=== PATIENT | female | born 1990 | race Two or more races ===

== ENCOUNTER 2024-11-16 10:20 | Emergency (ER) | payer BC, OTHER ==
[~2024-11-16] VITALS: Ht 160 cm; Wt 63.0 kg
--- NOTE | 2024-11-16 10:36 | ED.PDOC ---
History of Present Illness HPI Comments 22 wks preg test with a chief complaint of URI symptoms x 2 days. Complains of nasal congestion sore throat nonproductive cough. Taking: Tylenol. Denies fevers chills night sweats unintentional weight loss Denies persistent chest pain, shortness of breath, leg swelling Denies history of asthma nor any breathing conditions Denies history of pneumonia Denies recent international travel Chief Complaint: Flu like Time Seen by MD: 10:27 Reviewed Notes: Nurses Notes, Medications, Allergies Information Source: Patient Past Medical History PAST MEDICAL HISTORY: Denies Family History Family History: Reviewed,noncontributory to illness Social History Smoker: Non-Smoker Alcohol: Denies ETOH Use Drugs: Denies Drug Use All Other Systems: Reviewed and Negative (PER HPI) Physical Exam General Appearance: No Apparent Distress, Normal HEENT: Normal ENT Inspection, Pharynx Normal, TMs Normal Neck: Full Range of Motion, Non-Tender, Normal, Normal Inspection Respiratory: Chest Non-Tender, Lungs Clear, No Accessory Muscle Use, No Respiratory Distress, Normal Breath Sounds Cardiovascular: No Edema, No JVD, No Murmur, No Gallop, Normal Peripheral Pulses, Regular Rate/Rhythm Breast Exam: Deferred Gastrointestinal: No Organomegaly, Non Tender, No Pulsatile Mass, Normal Bowel Sounds, Soft Genitalia: Deferred Pelvic: Deferred Rectal: Deferred Extremities: No calf tenderness, Normal capillary refill, Normal inspection, Normal range of motion, Non-tender, No pedal edema Musculoskeletal : Apperance: Normal Neurologic: Alert, electrical instrumentation technician II-XII nml as Tested, No Motor Deficits, Normal Affect, Normal Mood, No Sensory Deficits Cerebellar Function: Normal Reflexes: Normal Skin: Dry, Normal Color, Warm Lymphatic: No Adenopathy Was a procedure done? Was a procedure done?: No Fever Differential Dx Differential Diagnosis: Viral Syndrome, Other X-Ray, Labs, Meds, VS Vital Signs Date Time Temp Pulse Resp B/P (MAP) Pulse Ox O2 Delivery O2 Flow Rate FiO2 11/16/24 12:51 74 17 97 Room Air 11/16/24 12:51 98.7 74 17 134/68 (90) 97 98.7 11/16/24 10:22 97.7 123 18 146/90 94 97.7 Lab Test 11/16/24 11:01 11/16/24 10:56 Range/Units Urine Color Light-yellow Yellow Urine Clarity Clear Clear Urine pH 6.5 5.0-9.0 Urine Specific [place] 1.018 1.001-1.035 Urine Protein Negative Negative Urine Ketones Negative Negative Urine Blood Negative Negative /uL Urine Nitrite Negative Negative Urine Bilirubin Negative Negative Urine Urobilinogen Normal Negative mg/dL Urine Leukocyte Esterase Negative Negative /uL Urine Glucose Normal Normal mg/dL Influenza Type A Antigen Negative Negative Influenza Type B Antigen Negative Negative SARS-CoV-2 Antigen (Rapid) Negative NEGATIVE White Blood Count 8.0 4.4-10.8 10^3/uL Red Blood Count 4.71 4.0-5.20 10^6/uL Hemoglobin 13.7 12.2-16.2 g/dL Hematocrit 40.9 36.0-46.0 % Mean Corpuscular Volume 86.7 80.0-100.0 fL Mean Corpuscular Hemoglobin 29.2 28.0-32.0 pg Mean Corpuscular Hemoglobin Concent 33.6 32.0-36.0 g/dL Red Cell Distribution Width 13.8 11.8-14.3 % Platelet Count 243 140-450 10^3/uL Mean Platelet Volume 7.4 6.9-10.8 fL Neutrophils (%) (Auto) 80.3 H 37.0-80.0 % Lymphocytes (%) (Auto) 9.1 L 10.0-50.0 % Monocytes (%) (Auto) 9.4 0.0-12.0 % Eosinophils (%) (Auto) 0.7 0.0-7.0 % Basophils (%) (Auto) 0.5 0.0-2.0 % Neutrophils # (Auto) 6.4 1.6-8.6 10 ^3/uL Lymphocytes # (Auto) 0.7 0.4-5.4 10 ^3/uL Monocytes # (Auto) 0.7 0-1.3 10 ^3/uL Eosinophils # (Auto) 0.1 0-0.8 10 ^3/uL Basophils # (Auto) 0 0-0.2 10 ^3/uL Nucleated Red Blood Cells 0.0 % Sodium Level 138 136-145 mmol/L Potassium Level 4.4 3.5-5.1 mmol/L Chloride Level 105 98-107 mmol/L Carbon Dioxide Level 23 20-31 mmol/L Anion Gap 10 5-15 Blood Urea Nitrogen 6 L 9-23 mg/dL Creatinine 0.54 L 0.550-1.02 mg/dL Glomerular Filtration Rate Calc 125 >90 mL/min BUN/Creatinine Ratio 11.1 10.0-20.0 Serum Glucose 113 H 74-106 mg/dL Calcium Level 9.3 8.7-10.4 mg/dL X-Ray, Labs, Meds, VS Comment The patient is overall well-appearing nontoxic on exam. On physical exam, respirations even and unlabored, clear to auscultation bilaterally. Oxygen stable on room air. Did not have any focal lung findings and therefore chest x-ray was not indicated during this exam Low suspicion of strep pharyngitis given physical exam findings and patient's presenting symptoms No signs of meningismus on exam Overall, the patient is well hydrated and nontoxic. Plan for symptomatic control for fever and pain as needed. The patient was able to tolerate p.o. intake in the ED. at this time, patient is safe for discharge home. The exam findings and plan discussed. We will discharge home with PCP follow up and strict return precautions. Discussed that cough can linger up to 6 weeks after viral URI Supportive care and return precautions discussed Counseled viral infection and explained that antibiotics would not be helpful in resolving the illness sooner. Recommended vitamin C, rest, handwashing, and symptomatic care. Expect 2-week course with possibly of cough lingering up to 6 weeks. Nonpharmacological remedies for fluids has been recommended as well Patient is stable for discharge at this time. External notes reviewed. Test results and diagnostic imaging interpreted. All diagnostic findings, discharge care, education and instructions provided Follow-up with PCP in 2 to 3 days Patient verbalized understanding and agreed to treatment plan Vital signs stable, afebrile, no acute distress noted Patient ambulatory with strong steady gait Advised to return precautions for any new or worsening symptoms, return to ER immediately for re-evaluation Patient is aware that the purpose of this visit was for an acute medical emergency requiring emergent stabilization. Chronic conditions, including malignancies have not been ruled out. Patient is instructed to follow up with PCP as directed and discharge instructions for continued care and workup. If unable to arrange follow-up, patient is to return to the emergency department for reassessment. Patient (parent or legal guardian if applicable) was given verbal and written discharge instructions and acknowledges understanding. Time of 1ST Reevaluation: 12:30 Reevaluation 1ST: Improved Patient Education/Counseling: Diagnosis, Treatment Family Education/Counseling: Diagnosis, Treatment SEPSIS Sepsis Screen Date sepsis recognized/suspect: Nov 16, 2024 Time Sepsis recognized/suspect: 1024 Recent Procedure: No On Antibiotic Therapy: No Respiratory Rate >20: No Heart Rate >90: No Temp<36 C (96.8 F) or >38.3 C: No SBP <90 or MAP <65 mmHG: No New Acute Mental Status Change: No Is the patient on CPAP, BIPAP,: No Vital Signs Date Time Temp Pulse Resp B/P (MAP) Pulse Ox O2 Delivery O2 Flow Rate FiO2 11/16/24 12:51 74 17 97 Room Air 11/16/24 12:51 98.7 74 17 134/68 (90) 97 98.7 11/16/24 10:22 97.7 123 18 146/90 94 97.7 Laboratory Tests Test 11/16/24 10:56 White Blood Count 8.0 10^3/uL (4.4-10.8) Departure 1 Departure Time of Disposition: 12:45 Impression: Primary Impression: Viral syndrome Disposition: 01 HOME / SELF CARE / HOMELESS Condition: Stable Critical Care Note Critical Care Time?: No Stability Stability form required: No Heart Score Heart Score: Heart Score Response (Comments) Value History N/A 0 EKG N/A 0 Age N/A 0 Risk Factors N/A 0 Troponin N/A 0 Total 0 ALOK REDDING NP Nov 16, 2024 10:35
[2024-11-16 11:11] LABS: Hematocrit 40.9 % (36.0-46.0); Hemoglobin 13.7 g/dL (12.2-16.2); Mean Corpuscular Hemoglobin 29.2 pg (28.0-32.0); Mean Corpuscular Volume 86.7 fL (80.0-100.0); Nucleated Red Blood Cells % 0.0 %
[2024-11-16 11:19] LABS: Chloride 105 mmol/L (98-107); Potassium 4.4 mmol/L (3.5-5.1); Sodium 138 mmol/L (136-145)
[2024-11-16 11:20] LABS: Anion Gap 10 (5-15); Carbon Dioxide 23 mmol/L (20-31)
[2024-11-16 11:21] LABS: Calcium 9.3 mg/dL (8.7-10.4)
[2024-11-16 11:26] LABS: BUN/Creatinine Ratio 11.1 (10.0-20.0)
[2024-11-16 11:30] LABS: Blood Urea Nitrogen 6 mg/dL (9-23); Glucose 113 mg/dL (74-106)
[2024-11-16 11:45] LABS: COVID19 ANTIGEN SOFIA FIA NEGATIVE (NEGATIVE)
[2024-11-16 11:51] LABS: Urine Protein, UAD Negative (Negative)
[2024-11-16] MEDS ORDERED: IBUP-1454 PO (12:46)
[2024-11-16] MEDS ORDERED: LOPE1TAB9 PO (12:46)
[2024-11-16 12:51] VITALS: BP 134/68; PULSE 74; RESP 17; TEMP 98.7; O2SAT 97
== END 2024-11-16 12:53 | disposition home or self-care (01) ==
LOC: ER 10:20
DX: O98.512 Other viral diseases complicating pregnancy, second trimester (principal); B34.9 Viral infection, unspecified; Z3A.22 22 weeks gestation of pregnancy; Z20.822 Contact with and (suspected) exposure to COVID-19
CPT/HCPCS: 36415; 80048; 81003; 85025; 87426; 87804